=== PATIENT | male | born 1945 | race Caucasian/White ===

== ENCOUNTER 2017-03-24 10:15 | Inpatient (IN) | payer MEDICARE, BC ==
[~2017-03-24] VITALS: Ht 177.8 cm; Wt 85.6 kg
[2017-03-24] VITALS (21 sets, daily range): BP systolic 68–140; BP diastolic 41–86; PULSE 67–98; RESP 16–24; Ht 177.8 cm; Wt 85.6 kg
[~2017-03-24 10:15] MED LIST: CEFAZOLIN 1 GM INJ ONE; FENTAnyl 50 MCG/ML VIAL ONE; MIDAZOLAM 1 MG/ML 2 ML INJ ONE; PROPOFOL 100 ML ONE; ROCURONIUM 50 MG INJ ONE; SUCCINYLCHOLINE CHLORIDE 100 MG/5 ML SYG IV ONE
[2017-03-24] MEDS ORDERED: BUPIVACAINE 0.5%/EPI (SDV) 30 ML INJ ONE ×2 (10:30→12:56)
[2017-03-24] MEDS ORDERED: SURGIFOAM POWDER 1 GM KIT ONE ×2 (10:30→12:56)
[2017-03-24] MEDS ORDERED: POLYMYXIN/BACITRACIN 1L IRRIG ONE ×2 (10:31→12:56)
[2017-03-24] MEDS ORDERED: THROMBIN 5000 UNIT VIAL ONE ×2 (10:31→12:56)
[2017-03-24] MEDS ORDERED: CA CHLORIDE 10% 10 ML SYRINGE ONE ×2 (10:31→12:56)
[2017-03-24] MEDS ORDERED: CLON-379 PO (10:57)
[2017-03-24] MEDS ORDERED: LOSA1TAB20 PO (10:57)
[2017-03-24] MEDS ORDERED: EZET10TA3 PO (10:58)
[2017-03-24] MEDS ORDERED: WARF4TAB52 PO (10:58)
[2017-03-24] MEDS ORDERED: FELO10TA PO (11:03)
[2017-03-24] MEDS ORDERED: ROSU20TA PO (11:03)
[2017-03-24] MEDS ORDERED: METF500T4 PO (11:04)
[2017-03-24] MEDS ORDERED: FENO145T19 PO (11:05)
[2017-03-24] MEDS ORDERED: OXYC-209 PO (11:05)
--- NOTE | 2017-03-24 11:05 | HPN ---
Date/Time of Note Date/Time of Note DATE: 03/24/17 TIME: 11:04 Interval H&P Admission Note Pt. seen H&P reviewed: No system changes EDUARDO GAMBOA PA-C Mar 24, 2017 11:04
[2017-03-24] MEDS ORDERED: DIAZ10TA4 PO (11:06)
[2017-03-24] MEDS ORDERED: ACETAMINOPHEN 325 MG TAB PO PRN (11:30)
[2017-03-24] MEDS ORDERED: BISACODYL 10 MG SUPP PR PRN (11:30)
[2017-03-24] MEDS ORDERED: HYDROmorphONE 0.2 MG/ML PCA IV SCH (11:30)
[2017-03-24] MEDS ORDERED: AL HYDROX/MG HYDROX/SIMETH 30 ML CUP PO PRN (11:30)
[2017-03-24] MEDS ORDERED: FENTAnyl 50 MCG/ML VIAL ONE ×3 (11:43→14:31)
[2017-03-24 12:06] LABS: INR 1.13; PROTIME 14.5 Sec (12.2-14.2); PT RATIO 1.1
[2017-03-24 12:07] LABS: PARTIAL THROMBOPLASTIN TIME 26.9 Sec (25.0-35.0)
[2017-03-24] MEDS ORDERED: ONDANSETRON 4 MG INJ ONE (12:51)
[2017-03-24] MEDS ORDERED: ACETAMINOPHEN 1000MG/100ML IV 100 ML ONE ×2 (12:51→12:53)
[2017-03-24] MEDS ORDERED: METOCLOPRAMIDE 10 MG INJ ONE (12:52)
[2017-03-24] MEDS ORDERED: DEXAMETHASONE 4 MG/ML 1 ML INJ ONE (12:52)
[2017-03-24] MEDS ORDERED: PHENYLephrine (100 MCG/ML) 5ML SYG ONE (12:56)
--- NOTE | 2017-03-24 13:04 | RADRPT ---
PROCEDURE: Intraoperative XR. CLINICAL INDICATION: Intraoperative radiograph during lumbar spine surgery. TECHNIQUE: Spot intraoperative lateral lumbar x-ray image was provided. The images were reviewed on a high-resolution PACS workstation. COMPARISON: None available FINDINGS: Spot intraoperative lateral lumbar view were provided during lumbar spine surgery. The images demon strate metallic probes at the level of L4-5 and L5-S1. There is severe spondylosis at L4-5 with monalisa re disc-space narrowing and associated discogenic endplate changes. There is moderate facet spondylo sis at L4-5 and L5-S1. IMPRESSION: 1. Spot intraoperative lateral lumbar view during lumbar spine surgery were provided. 2. Please see operative report of the same day for further information. RPTAT: HGAS .Ray Dover MD, Date Time Electronically viewed and signed by .Ray Dover MD, on 03/24/2017 13:04 .S/
--- NOTE | 2017-03-24 13:04 | RADRPT ---
PROCEDURE: Intraoperative XR. CLINICAL INDICATION: Intraoperative radiograph during lumbar spine surgery. TECHNIQUE: Spot intraoperative lateral lumbar x-ray image was provided. The images were reviewed on a high-resolution PACS workstation. COMPARISON: 03/24/2017 FINDINGS: Spot intraoperative lateral lumbar view were provided during lumbar spine surgery. The images demon strate metallic instrumentation at the level of L5-S1. There is severe spondylosis at L4-5. IMPRESSION: 1. Spot intraoperative lateral lumbar view during lumbar spine surgery were provided. 2. Please see operative report of the same day for further information. RPTAT: HGAS .Ray Dover MD, MD Date Time Electronically viewed and signed by .Ray Dover MD, on 03/24/2017 13:04 .S/
[2017-03-24] MEDS ORDERED: morphine (1 MG/ML) 10ML SYRINGE IV PRN ×6 (13:30→15:00)
[2017-03-24] MEDS ORDERED: ONDANSETRON 4 MG INJ IV PRN ×3 (13:30→15:00)
[2017-03-24] MEDS ORDERED: LABETALOL HCL 20MG INJ IV PRN ×2 (13:30→15:00)
[2017-03-24] MEDS ORDERED: OXYCODONE/ACETAMINOPHEN (5/325) TAB PO PRN ×4 (13:30→15:00)
[2017-03-24] MEDS ORDERED: HYDROmorphONE (0.2 MG/ML) 10ML SYG IV PRN ×6 (13:30→15:00)
[2017-03-24] MEDS ORDERED: METOCLOPRAMIDE 10 MG INJ IV PRN ×2 (13:30→15:00)
[2017-03-24] MEDS ORDERED: DIPHENHYDRAMINE 50 MG INJ IV PRN ×3 (13:30→15:00)
[2017-03-24] MEDS ORDERED: hydrALAzine 20 MG INJ IV PRN ×2 (13:30→15:00)
[2017-03-24] MEDS ORDERED: FENTAnyl 50 MCG/ML VIAL IV PRN ×6 (13:30→15:00)
[2017-03-24] MEDS ORDERED: EPHEDrine SULFATE 50 MG/5 ML SYG IV PRN ×2 (13:30→15:00)
[2017-03-24] MEDS ORDERED: MEPERIDINE 25 MG INJ IV PRN ×2 (13:30→15:00)
[2017-03-24] MEDS ORDERED: hydrALAzine 20 MG INJ ONE (14:16)
[2017-03-24] MEDS ORDERED: SUGAMMADEX SODIUM 200 MG/2 ML VIAL IV ONE (14:22)
--- NOTE | 2017-03-24 14:48 | SIPON ---
Date/Time of Note Date/Time of Note DATE: 03/24/17 TIME: 14:46 Operative Report Preoperative Diagnosis lumbar stenosis Postoperative Diagnosis lumbar stenosis Operation/Procedure Performed lumbar decompression Surgeon see signature line academic assistant courtney Anesthesia: general Estimated blood loss: 10 - 50 ml's Transfusion Required none Specimen disk Grafts/Implants none Complications none LINDA COLEY MD Mar 24, 2017 14:48
[2017-03-24] MEDS ORDERED: CEPASTAT LOZENGE MT PRN (15:00)
[2017-03-24] MEDS ORDERED: HYDROmorphONE 0.5 MG/0.5 ML SYG IV PRN (15:00)
[2017-03-24] MEDS ORDERED: D5W-0.45 NACL + KCL 20 MEQ 1,000 ML IV SCH (15:00)
[2017-03-24] MEDS ORDERED: NALOXONE (0.4 MG/ML) INJ IV PRN (15:00)
--- NOTE | 2017-03-24 15:28 | OPR ---
DATE OF OPERATION: 03/24/2017 PREOPERATIVE DIAGNOSES: 1. Degenerative scoliosis. 2. L4-5 and L5-S1 stenosis. 3. Right far lateral disk extrusion at L5-S1. 4. Radiculopathy. POSTOPERATIVE DIAGNOSES: 1. Degenerative scoliosis. 2. L4-5 and L5-S1 stenosis. 3. Right far lateral disk extrusion at L5-S1. 4. Radiculopathy. PROCEDURE PERFORMED: 1. Right L4-5 and L5-S1 decompression for stenosis with decompression of right L4, L5, and S1 nerve roots. 2. Right extraforaminal diskectomy at L5-S1. 3. Use of operative microscope. 4. Lateral localizing film x2. 5. Intraoperative neuromonitoring (2 hours). 6. Epidural injection via catheter. 7. Intraoperative microscope. PRIMARY SURGEON: Frank Ortega MD M[employer] PROJECT MANAGER: Nikky Zimmerman PA-C NEED FOR TUBE LASER OPERATOR: During this spinal surgical procedure, my human resource assistant was used to retrac t and protect the spinal nerves and dural sac. My human resource assistant also employed the suction catheters to evacuate blood from the surgical field to improve visualization of the neural structures. The tonny tant was medically necessary to facilitate the completion of the surgery in a safe and expeditious m emily. State of [place] regulations, as well as hospital bylaws, preclude the use of non-license d health care personnel, such as operating room technicians, to perform these functions. FINDINGS: Neuromonitoring at the start of the case revealed right L5 and S1 amplitude down 40%. At the end of the case, nerve signals returned to normal. The patient had severe stenosis at L4-L5 an d L5-S1. The patient had a far lateral disk extrusion at L5-S1. ESTIMATED BLOOD LOSS: 50 mL. DRAINS: None. SPECIMENS: L5-S1 disk. COMPLICATIONS OF PROCEDURES: None. ANESTHESIOLOGIST: STEVAN MARTINES MD. TYPE OF ANESTHESIA: General. INDICATIONS FOR PROCEDURE: This is a 71-year-old gentleman with right lumbosacral radiculopathy. T his is in the setting of stenosis and disk herniation. He failed nonoperative measures, therefore, I recommended proceeding with the above-mentioned surgery. Preoperatively, we discussed the risks, benefits, and alternatives. He understood and wished to proceed. DESCRIPTION OF PROCEDURE IN DETAIL: The patient was identified in the preoperative holding area, gi manuelito Ancef antibiotics in the operating room, where he was successfully placed under general anesthes ia. Neuromonitoring leads were placed, sequential compressive devices were applied. Neuromonitorin g was utilized during the procedure for 2 hours to include SSEP, MEP, and EMG. This was performed b [employer]. Start time was 12:30 p.m., closure time was 2:30 p.m. The patient was placed o n the operating table in prone position over a Shashank frame. All bony prominences were well padded, Bactrim, prepped and draped in usual sterile fashion. Spinal needles were placed and lateral local izing films obtained to confirm the correct levels. Once this was confirmed, microscope was brought in. Once this was confirmed, I injected the skin with Marcaine and epinephrine. An incision was m jennifer over the L4-5 and L5-S1 levels. Incision was taken down to dorsal fascia, which was incised wit h Bovie cautery. I then subperiosteally dissected the right L4, L5, and S1 lamina. Justyna retracto r was placed. Kerrison was placed in what was felt to be the L4 and L5 lamina and repeat lateral fi lms obtained to confirm the correct levels. Next, microscope was brought in. The patient had facet overgrowth all the way towards midline and therefore it was quite difficult to get a Kerrison in th ere in order to decompress the canal. I had to use the curet to remove some of the facet joint in o rder to be able to bring a Kerrison into the canal. I also used the high-speed bur to thin down the lamina. This alteration of the anatomy added at least 30 to 45 minutes further decompression. Ult imately I was able to perform a right-sided hemilaminotomy at L4 and a hemilaminectomy at L5. I was only able to remove a portion of ligamentum flavum. This was adherent to the dura. There were als o vessels surrounding and anterior to the dura. I was able to decompress this laterally in order to decompress the right L4, L5, and S1 nerve roots for stenosis. Additionally, to further decompress the canal, I made an annulotomy at L5-S1 and performed a right-sided extraforaminal diskectomy at L5 -S1 as there was a large extruded fragments into the foramen. Once this was all done, all nerve sig nals returned to normal. I irrigated the wound. Hemostasis was achieved with bipolar cautery and S urgifoam. Valsalva maneuver was performed and there was no leak of CSF. Bone wax was placed on the bony edges. The wound was dry and therefore, I elected not to place a drain. I passed an epidural catheter and injected 100 mcg of fentanyl. I then injected PTT with thrombin over the dura for hem ostatic purposes. Catheter was pulled. I closed the deep fascia with a #1 Vicryl stitch. I closed subcutaneous tissue with 2-0 Vicryl stitch. A 4-0 Monocryl closure was then performed. Microscope was taken off the field. Sterile dressings were then applied. The patient was then awakened from anesthesia and taken to recovery in stable condition. Lap, sponge, and instrument counts were corre ct x2. There were no apparent complications during the procedure. The patient will be admitted to the [facility] for routine postoperative care to include pain c ontrol, neurovascular checks, antibiotics, and physical therapy. Dictated By: FRANK LEON/DEBRA Conf#: [id number] DID#: [id number]
[2017-03-24] MEDS ORDERED: ZOLPIDEM 5 MG TAB PO PRN (16:00)
--- NOTE | 2017-03-24 17:53 | CONS ---
Date/Time of Note Date/Time of Note DATE: 03/24/17 TIME: 17:46 Assessment/Plan Assessment/Plan Problems: (1) S/P lumbar spinal fusion Onset Date: ~ 03/24/2017 Status: Acute Comment: He is postop and appears to be doing well. My main concern given his Antithrombin III deficiency is prevention of thrombus or embolic disease. He will continue with active rehabilitation. (2) S/P lumbar microdiscectomy Onset Date: ~ 03/24/2017 Status: Acute Comment: As above. Active rehabilitation. 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 He will be anticoagulated here pending getting him up and around. (4) Hyperlipidemia associated with type 2 diabetes mellitus Status: Chronic Comment: Continue statin therapy. (5) Diabetes mellitus type 2 in nonobese Status: Chronic Comment: Continue with therapeutics. (6) Essential hypertension Status: Chronic Comment: Continue with therapeutics. Consultation Date/Type/Reason Admit Date/Time Mar 24, 2017 at 10:15 Date of Consultation: Mar 24, 2017 Type of Consultation: Internal medicine Reason for Consultation Postoperative care after lumbar spinal surgery with right L4-5 and L5-S1 decompression and right L5-S1 extraforaminal discectomy Referring Provider: LINDA COLEY MD Hx of Present Illness Chargeorgina 71-year-old gentleman with significant lumbar disc disease and lumbar spinal stenosis who failed all conservative attempts at therapeutics. Brought in for surgery. Please note his preop was done by his primary physician in [place]. Constitutional: no complaints Eyes: no complaints ENT: no complaints Respiratory: no complaints Cardiovascular: no complaints Gastrointestinal: no complaints Genitourinary: no complaints Musculoskeletal: back pain Skin: no complaints Neurologic: no complaints Endocrine: no complaints Lymphatic: no complaints Past Medical History Medical History: diabetes, high cholesterol, hypertension, other (Antithrombin III deficiency; history of bilateral pulmonary emboli; history DVT.) Past Surgical History Past Surgical Hx: other (Left knee arthroplasty; status post cervical spine fusion; status post right Christian Colindres procedure) Family History Significant Family History: diabetes, hypertension, other Social History Alcohol Use: other (None 2 years) Smoking Status: Former smoker Drug Use: none Other Social History [facility] and raised; 2 years college; 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 Exam/Review of Systems Vital Signs Vitals Vital Signs Date Time Temp Pulse Resp B/P Pulse Ox O2 Delivery O2 Flow Rate FiO2 03/24/17 15:31 81 98/47 93 Room Air 03/24/17 15:26 21 03/24/17 14:54 99.0 Exam Constitutional: alert, oriented Head: atraumatic, normocephalic Eyes: EOMI, PERRL, nl conjunctiva, nl lids, nl sclera ENMT: mucosa pink and moist, nl external ears & nose, nl lips & teeth, nl nasal mucosa & septum Neck: non-tender, supple Respiratory: clear to auscultation, normal air movement Cardiovascular: nl pulses, regular rate and rhythm Gastrointestinal: nl liver, spleen, non-tender, soft Extremities: normal pulses Neurological: BATCH TESTER II-XII intact, nl mental status, nl speech, nl strength Skin: nl turgor, rash or lesions Lymph: nl lymph nodes Results Results 24 hrs Laboratory Tests Test 03/24/17 10:55 03/24/17 10:56 Prothrombin Time 14.5 H Prothrombin Time Ratio 1.1 INR International Normalized Ratio 1.13 Activated Partial Thromboplast Time 26.9 Bedside Glucose 98 Medications Medications Current Medications Potassium Chloride/Dextrose/ Sod Cl (D5-1/2ns + KCl 20 Meq) 1,000 ml @ 100 mls/ hr Q10H IV Last administered on 03/24/17t 17:13; Admin Dose 100 MLS/HR; Start 03/24/17 at 15:00 Hydromorphone HCl 0.2 mg 0.2 mg Q1H PRN IV BREAKTHROUGH PAIN; Start 03/24/17 at 15:00 Cefazolin Sodium (Ancef 1 Gm/50 ml (Pmx)) 50 ml @ 100 mls/hr Q8H IVPB ; Start 03/24/17 at 20:00; Stop 03/25/17 at 12:29 Ondansetron HCl (Zofran Inj) 4 mg Q6H PRN IV NAUSEA AND/OR VOMITING; Start at 15:00 Bisacodyl (Dulcolax Supp) 10 mg DAILY PRN [place] CONSTIPATION; Start 03/24/17 at 11:30 Docusate Sodium (Colace) 100 mg BID PO ; Start 03/24/17 at 21:00 Al Hydrox/Mg Hydrox/Simethicone (Mag-Al Plus) 15 ml Q6H PRN PO CONSTIPATION/ DYSPEPSIA; Start 03/24/17 at 11:30 Acetaminophen (Tylenol Tab) 650 mg Q4H PRN PO YBARRA OR TEMP GREATER THAN 101.3F; Start 03/24/17 at 11:30 Phenol (Cepastat Lozenge) 1 lozenge PRN PRN MT SORE THROAT; Start 03/24/17 at 15:00 Diphenhydramine HCl (Benadryl) 25 mg Q6H PRN IV ITCHING; Start 03/24/17 at 15: 00 Naloxone HCl (Narcan) 0.2 mg Q2M PRN IV RR 8 BREATHS/MIN OR LESS; Start at 15:00 Hydromorphone HCl (Dilaudid RESIDENT CARE MANAGER RN) RESIDENT CARE MANAGER RN to be started in PACU Q4PCA IV Last administered on 03/24/17t 15:15; Admin Dose 6 MG; Start 03/24/17 at 11:30; Status Future Hold Miscellaneous Information 1. Hold RESIDENT CARE MANAGER RN at 1,000... RESIDENT CARE MANAGER RN IV ; Start 03/24/17 at 11 :30 Influenza Virus Vaccine (Fluzone) 0.5 ml ONCE ONCE IM* ; Start 03/26/17 at 09: 00; Stop 03/26/17 at 09:01 Oxycodone/ Acetaminophen (Endocet (10/ 325)) 1 tab Q4H PRN PO PAIN LEVEL 1-5; Start 03/25/17 at 10:00 Oxycodone/ Acetaminophen (Endocet (10/ 325)) 2 tab Q4H PRN PO PAIN LEVEL 6-10; Start 03/25/17 at 10:00 Oxycodone/ Acetaminophen (Endocet (10/ 325)) 2 tab ONCE@0930 PO ; Start at 09:30; Stop 03/25/17 at 09:31 DELISA BOLIVAR MD Mar 24, 2017 17:53
[2017-03-24] MEDS ORDERED: RIVAROXABAN 20 MG TABLET PO SCH (17:55)
[2017-03-24] MEDS ORDERED: LORAZEPAM 1 MG TAB PO PRN (18:00)
[2017-03-24] MEDS: metFORMIN 500 MG TAB PO SCH (18:27)
[2017-03-24] MEDS ORDERED: DEXTROSE 50% 50 ML SYRINGE IV PRN ×2 (18:30)
[2017-03-24] MEDS ORDERED: GLUCOSE GEL 15 GRAM TUBE BUCCAL PRN (18:30)
[2017-03-24] MEDS ORDERED: GLUCOSE GEL 15 GRAM TUBE PO PRN ×2 (18:30)
[2017-03-24] MEDS ORDERED: GLUCAGON 1 MG INJ IM PRN (18:30)
[2017-03-24] MEDS: ACCU-CHEK XX SCH (19:55)
[2017-03-24] MEDS: SOD CHLORIDE 0.9% 1,000 ML IV SCH (20:02)
[2017-03-24] MEDS: CEFAZOLIN 1 GM/50 ML (PMX) 50 ML IVPB SCH (20:31)
[2017-03-24] MEDS: DOCUSATE SODIUM 100 MG CAP PO SCH (20:31)
[2017-03-24] MEDS: INSULIN ASPART [NOVOLOG] 3 ML PEN SC SCH (20:38)
[2017-03-24] MEDS ORDERED: ATORVASTATIN 40 MG TAB PO SCH (21:00)
[2017-03-24] MEDS ORDERED: EZETIMIBE 10 MG TAB PO SCH (21:00)
[2017-03-25] VITALS: BP 143/72; RESP 19
[2017-03-25 00:15] VITALS: BP 128/60; PULSE 80
[2017-03-25] MEDS ORDERED: ACCU-CHEK XX SCH (02:00)
[2017-03-25 02:37] VITALS: BP 125/61; RESP 19
[2017-03-25 04:00] VITALS: BP 127/61; PULSE 77; RESP 18
[2017-03-25] MEDS: CEFAZOLIN 1 GM/50 ML (PMX) 50 ML IVPB SCH ×2 (04:29→11:59)
[2017-03-25 05:16] LABS: BASOPHILS % 0.1 % (0.0-2.0); HEMATOCRIT 33.7 % (42.0-52.0); HEMOGLOBIN 11.2 g/dl (14.0-18.0); LYMPHOCYTES # 0.6 10^3/ul (0.8-2.9); LYMPHOCYTES % 5.5 % (15.0-51.0); MEAN CORPUSCULAR HEMOGLOBIN 29.4 pg (29.0-33.0); MEAN CORPUSCULAR HGB CONC 33.2 g/dl (32.0-37.0); MEAN CORPUSCULAR VOLUME 88.5 fl (82.0-101.0); MEAN PLATELET VOLUME 10.8 fl (7.4-10.4); MONOCYTE # 0.6 10^3/ul (0.3-0.9); MONOCYTES % 5.3 % (0.0-11.0); NEUTROPHIL # 9.9 10^3/ul (1.6-7.5); NEUTROPHILS % 88.5 % (39.0-77.0); PLATELET COUNT 245 10^3/UL (140-415); RED BLOOD COUNT 3.81 10^6/ul (4.70-6.10); RED CELL DISTRIBUTION WIDTH 13.9 % (11.5-14.5); WHITE BLOOD COUNT 11.2 10^3/ul (4.8-10.8)
[2017-03-25] MEDS: SOD CHLORIDE 0.9% 1,000 ML IV SCH (05:40)
[2017-03-25 05:55] LABS: CALCIUM 8.6 mg/dl (8.4-10.2); CREATININE 1.04 mg/dl (0.61-1.24); MAGNESIUM 1.3 mg/dl (1.7-2.5); POTASSIUM 3.9 mmol/L (3.5-5.1)
[2017-03-25] MEDS: INSULIN ASPART [NOVOLOG] 3 ML PEN SC SCH ×2 (07:50→11:40)
[2017-03-25 07:59] VITALS: BP 163/76; RESP 18
[2017-03-25] MEDS ORDERED: FENOFIBRATE 145 MG TAB PO SCH (09:00)
[2017-03-25] MEDS ORDERED: LOSARTAN 50 MG TAB PO SCH (09:00)
[2017-03-25] MEDS ORDERED: HYDROCHLOROTHIAZIDE 25 MG TAB PO SCH (09:00)
[2017-03-25] MEDS ORDERED: FELODIPINE (ER) 5 MG TAB PO SCH (09:00)
[2017-03-25] MEDS: metFORMIN 500 MG TAB PO SCH (09:09)
[2017-03-25] MEDS: DOCUSATE SODIUM 100 MG CAP PO SCH (09:10)
[2017-03-25] MEDS ORDERED: OXYCODONE/ACETAMINOPHEN (10/325) TAB PO SCH (09:30)
[2017-03-25] MEDS ORDERED: OXYCODONE/ACETAMINOPHEN (10/325) TAB PO PRN (10:00)
[2017-03-25] MEDS: ACCU-CHEK XX SCH (10:50)
--- NOTE | 2017-03-25 12:52 | DS ---
Date/Time of Note Date/Time of Note DATE: 03/25/17 TIME: 12:52 Discharge Summary Admission/Discharge Info Admit Date/Time Mar 24, 2017 at 10:15 Discharge Date/Time 03/25 Discharge Diagnosis lumbar stenosis Patient Condition: Good Procedures lumbar discectomy Hx of Present Illness back and leg pain Hospital Course the patient was admitted [facility] the [facility] after undergoing the above procedure. The post-op course was uncomplicated. By post-op day #1 the patient was doing well and deemed stable for discharge with f/u arranged with the undersigned. Home Meds Reported Medications Diazepam* (Diazepam*) 10 Mg Tablet, 10 MG PO QHS, TAB 03/24/17 Oxycodone HCl/Acetaminophen (Percocet 10-325 mg Tablet) 1 Each Tablet, 1 EACH PO QID Y for PAIN, TAB 03/24/17 Fenofibrate Nanocrystallized* (Fenofibrate*) 145 Mg Tablet, 145 MG PO DAILY, TAB 03/24/17 Metformin Hcl* (Metformin Hcl*) 500 Mg Tablet, 500 MG PO WITH BREAKFAST DINNE, # 30 TAB 03/24/17 Rosuvastatin Calcium* (Crestor*) 20 Mg Tablet, 20 MG PO QHS, #30 TAB 03/24/17 Felodipine* (Felodipine*) 10 Mg Tab.sr.24h, 10 MG PO DAILY, TAB.SA 03/24/17 Ezetimibe* (Zetia*) 10 Mg Tablet, 10 MG PO HS, TAB 03/24/17 Warfarin Sodium* (Warfarin Sodium*) 4 Mg Tablet, 4 MG PO DAILY, TAB 03/24/17 Losartan-Hydrochlorothiazide (Losartan-HCTZ) 100-25 Mg Tab, 1 TAB PO DAILY, TAB 03/24/17 Clonidine Hcl* (Clonidine Hcl*) 0.1 Mg Tab, 0.1 MG PO BID Y for ELEVATED BLOOD PRESSURE, TAB 03/24/17 Primary Care Provider Not On Staff Doctor Pending Labs Laboratory Tests Test 03/24/17 18:25 03/24/17 20:34 03/25/17 02:15 03/25/17 04:32 Bedside Glucose 152mg/dL (70-220) 228mg/dL (70-220) 140mg/dL (70-220) White Blood Count 11.210^3/ul (4.8-10.8) Red Blood Count 3.8110^6/ul (4.70-6.10) Hemoglobin 11.2g/dl (14.0-18.0) Hematocrit 33.7% (42.0-52.0) Mean Corpuscular Volume 88.5fl (82.0-101.0) Mean Corpuscular Hemoglobin 29.4pg (29.0-33.0) Mean Corpuscular Hemoglobin Concent 33.2g/dl (32.0-37.0) Red Cell Distribution Width 13.9% (11.5-14.5) Platelet Count 66428^3/UL (140-415) Mean Platelet Volume 10.8fl (7.4-10.4) Neutrophils % 88.5% (39.0-77.0) Lymphocytes % 5.5% (15.0-51.0) Monocytes % 5.3% (0.0-11.0) Eosinophils % 0.0% (0.0-7.0) Basophils % 0.1% (0.0-2.0) Nucleated Red Blood Cells % 0.0/100WBC (0.0-0.0) Neutrophils # 9.910^3/ul (1.6-7.5) Lymphocytes # 0.610^3/ul (0.8-2.9) Monocytes # 0.610^3/ul (0.3-0.9) Eosinophils # 0.010^3/ul (0.0-0.5) Basophils # 0.010^3/ul (0.0-0.1) Nucleated Red Blood Cells # 0.010^3/ul (0.0-0.0) Sodium Level 135mmol/L (135-144) Potassium Level 3.9mmol/L (3.5-5.1) Chloride Level 104mmol/L (97-110) Carbon Dioxide Level 24mmol/L (21-31) Anion Gap 11 (8-16) Blood Urea Nitrogen 23mg/dl (7-20) Creatinine 1.04mg/dl (0.61-1.24) Glucose Level 138mg/dl (70-220) Calcium Level 8.6mg/dl (8.4-10.2) Magnesium Level 1.3mg/dl (1.7-2.5) Test 03/25/17 08:55 03/25/17 11:29 Bedside Glucose 138mg/dL (70-220) 137mg/dL (70-220) LINDA COLEY MD Mar 25, 2017 12:52
--- NOTE | 2017-03-25 13:08 | CONS ---
Date/Time of Note Date/Time of Note DATE: 03/25/17 TIME: 13:06 Assessment/Plan Assessment/Plan Chief Complaint/Hosp Course Quinn 71-year-old gentleman with significant lumbar disc disease and lumbar spinal stenosis who failed all conservative attempts at therapeutics. Brought in for surgery. Please note his preop was done by his primary physician in [place]. 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 Comment: warfarin therapy to resume (5) Essential hypertension Status: Chronic Comment: good control (6) Diabetes mellitus type 2 in nonobese Status: Chronic Comment: good control Consultation Date/Type/Reason Admit Date/Time Mar 24, 2017 at 10:15 Initial Consult Date 03/24/17 Type of Consultation: Internal medicine Reason for Consultation post op care with medical issues Referring Provider: LINDA COLEY MD 24 HR Interval Summary Constitutional: no complaints Detailed Summary Respiratory: no complaints Cardiovascular: no complaints Gastrointestinal: no complaints Exam/Review of Systems Vital Signs Vitals Vital Signs Date Time Temp Pulse Resp B/P Pulse Ox O2 Delivery O2 Flow Rate FiO2 03/25/17 08:00 16 03/25/17 07:59 99.1 92 163/76 96 03/25/17 04:00 Room Air 03/24/17 20:14 2.0 Intake and Output 03/24/17 03/24/17 03/25/17 15:00 23:00 07:00 Intake Total 1000 ml 345 ml 850 ml Output Total 250 ml Balance 750 ml 345 ml 850 ml Exam Constitutional: alert, oriented Respiratory: clear to auscultation, normal air movement Cardiovascular: nl pulses, regular rate and rhythm Results Result Diagram: 03/25/17 0432 03/25/17 0432 Results 24 hrs Laboratory Tests Test 03/24/17 18:25 03/24/17 20:34 03/25/17 02:15 03/25/17 04:32 Bedside Glucose 152 228 H 140 White Blood Count 11.2 H Red Blood Count 3.81 L Hemoglobin 11.2 L Hematocrit 33.7 L Mean Corpuscular Volume 88.5 Mean Corpuscular Hemoglobin 29.4 Mean Corpuscular Hemoglobin Concent 33.2 Red Cell Distribution Width 13.9 Platelet Count 245 Mean Platelet Volume 10.8 H Neutrophils % 88.5 H Lymphocytes % 5.5 L Monocytes % 5.3 Eosinophils % 0.0 Basophils % 0.1 Nucleated Red Blood Cells % 0.0 Neutrophils # 9.9 H Lymphocytes # 0.6 L Monocytes # 0.6 Eosinophils # 0.0 Basophils # 0.0 Nucleated Red Blood Cells # 0.0 Sodium Level 135 Potassium Level 3.9 Chloride Level 104 Carbon Dioxide Level 24 Anion Gap 11 Blood Urea Nitrogen 23 H Creatinine 1.04 Glucose Level 138 Calcium Level 8.6 Magnesium Level 1.3 L Test 03/25/17 08:55 03/25/17 11:29 Bedside Glucose 138 137 Medications Medications Current Medications Hydromorphone HCl (Dilaudid) 0.2 mg Q1H PRN IV BREAKTHROUGH PAIN; Start at 15:00 Ondansetron HCl (Zofran Inj) 4 mg Q6H PRN IV NAUSEA AND/OR VOMITING; Start at 15:00 Bisacodyl (Dulcolax Supp) 10 mg DAILY PRN [place] CONSTIPATION; Start 03/24/17 at 11:30 Docusate Sodium (Colace) 100 mg BID PO Last administered on 03/25/17t 09:10; Admin Dose 100 MG; Start 03/24/17 at 21:00 Al Hydrox/Mg Hydrox/Simethicone (Mag-Al Plus) 15 ml Q6H PRN PO CONSTIPATION/ DYSPEPSIA; Start 03/24/17 at 11:30 Acetaminophen (Tylenol Tab) 650 mg Q4H PRN PO YBARRA OR TEMP GREATER THAN 101.3F; Start 03/24/17 at 11:30 Phenol (Cepastat Lozenge) 1 lozenge PRN PRN [place] SORE THROAT; Start 03/24/17 at 15:00 Diphenhydramine HCl (Benadryl) 25 mg Q6H PRN IV ITCHING; Start 03/24/17 at 15: 00 Naloxone HCl (Narcan) 0.2 mg Q2M PRN IV RR 8 BREATHS/MIN OR LESS; Start at 15:00 Hydromorphone HCl (Dilaudid ELECTRIC POWER LINE REPAIRER) ELECTRIC POWER LINE REPAIRER to be started in PACU Q4PCA IV Last administered on 03/24/17 15:15; Admin Dose 6 MG; Start 03/24/17 at 11:30; Status Future Hold Miscellaneous Information 1. Hold ELECTRIC POWER LINE REPAIRER at 1,000... ELECTRIC POWER LINE REPAIRER IV ; Start 03/24/17 at 11 :30 Influenza Virus Vaccine (Fluzone) 0.5 ml ONCE ONCE IM* ; Start 03/26/17 at 09: 00; Stop 03/26/17 at 09:01 Oxycodone/ Acetaminophen (Endocet (10/ 325)) 1 tab Q4H PRN PO PAIN LEVEL 1-5; Start 03/25/17 at 10:00 Oxycodone/ Acetaminophen (Endocet (10/ 325)) 2 tab Q4H PRN PO PAIN LEVEL 6-10; Start 03/25/17 at 10:00 EZETIMIBE (Zetia) 10 mg HS PO Last administered on 03/24/17 20:31; Admin Dose 10 MG; Start 03/24/17 at 21:00 Felodipine (Plendil) 10 mg DAILY PO Last administered on 03/25/17 09:10; Admin Dose 10 MG; Start 03/25/17 at 09:00 Fenofibrate (Tricor) 145 mg DAILY PO Last administered on 03/25/17 09:09; Admin Dose 145 MG; Start 03/25/17 at 09:00 Lorazepam (Ativan) 1 mg Q8H PRN PO ANXIETY; Start 03/24/17 at 18:00 Losartan Potassium (Cozaar) 100 mg DAILY PO Last administered on 03/25/17 09: 09; Admin Dose 100 MG; Start 03/25/17 at 09:00 Atorvastatin Calcium (Lipitor) 40 mg HS PO Last administered on 03/24/17 20: 32; Admin Dose 40 MG; Start 03/24/17 at 21:00 Hydrochlorothiazide (Hydrochlorothiazide) 25 mg DAILY PO Last administered on 03/25/17 09:10; Admin Dose 25 MG; Start 03/25/17 at 09:00 Diagnostic Test (Pha) (Accu-Chek) 1 ea 02 XX ; Start 03/25/17 at 02:00 Miscellaneous Information 1 ea NOTE XX ; Start 03/24/17 at 18:30 Glucose (Glutose) 15 gm Q15M PRN PO DECREASED GLUCOSE; Start 03/24/17 at 18:30 Glucose (Glutose) 22.5 gm Q15M PRN PO DECREASED GLUCOSE; Start 03/24/17 at 18: 30 Dextrose (D50w Syringe) 25 ml Q15M PRN IV DECREASED GLUCOSE; Start 03/24/17 at 18:30 Dextrose (D50w Syringe) 50 ml Q15M PRN IV DECREASED GLUCOSE; Start 03/24/17 at 18:30 Glucagon (Glucagen) 1 mg Q15M PRN IM DECREASED GLUCOSE; Start 03/24/17 at 18: 30 Glucose 15 gm 15 gm Q15M PRN BUCCAL DECREASED GLUCOSE; Start 03/24/17 at 18:30 Sodium Chloride (NS) 1,000 ml @ 100 mls/hr Q10H IV Last administered on t 20:02; Admin Dose 100 MLS/HR; Start 03/24/17 at 19:40 DELISA BOLIVAR MD Mar 25, 2017 13:08
[2017-03-25] MEDS ORDERED: WARFARIN 5 MG TAB PO ONE (13:30)
[2017-03-25 14:44] VITALS: BP 121/67; RESP 18
[2017-03-25] MEDS: OXYCODONE/ACETAMINOPHEN (10/325) TAB PO PRN ×2 (15:05→15:56)
[2017-03-26] MEDS ORDERED: INFLUENZA VIRUS VACCINE 0.5 ML (DISPENSING) IM* ONE (09:00)
== END 2017-03-25 17:00 | disposition home or self-care (01) | DRG 519 ==
LOC: REC 10:15 → MS1 15:40
PROVIDERS: ADMIT Specialist; ATTEND Specialist
PROC: 0SB40ZZ Excision of Lumbosacral Disc, Open Approach (ICD-10-PCS; 2017-03-24)
PROC: 0QB00ZZ Excision of Lumbar Vertebra, Open Approach (ICD-10-PCS; principal; 2017-03-24 12:30)
DX: M51.17 Intervertebral disc disorders with radiculopathy, lumbosacral region (principal); D68.59 Other primary thrombophilia; M48.07 Spinal stenosis, lumbosacral region; M41.87 Other forms of scoliosis, lumbosacral region; I10 Essential (primary) hypertension; E11.9 Type 2 diabetes mellitus without complications; Z86.718 Personal history of other venous thrombosis and embolism; Z86.711 Personal history of pulmonary embolism; E78.5 Hyperlipidemia, unspecified
CPT/HCPCS: 72020; 80048; 82962; 83735; 85025; 85610; 85730; 86999; 88304; 97116; 97161; J0131; J0360; J0690; J1100; J1170; J1815; J2250; J2370; J2405; J2765; J3010; J3480; J7030